=== PATIENT | female | born 1990 | race African-American/Black ===

== ENCOUNTER 2021-06-14 18:19 | Emergency (ER) | payer OTHER, MEDICAID ==
[~2021-06-14] VITALS: Ht 160 cm; Wt 81.7 kg
[2021-06-14] MEDS ORDERED: PNV 29-1 TABLE1 EACH PO (18:59)
[2021-06-14] MEDS ORDERED: TRIUMEQ TABLET1 EACH PO (18:59)
[2021-06-14] MEDS ORDERED: HIV MEDICATION (18:59)
[2021-06-14] MEDS ORDERED: PHENERGAN 25 MG25 M1 PO (19:48)
[2021-06-14 19:58] VITALS: BP 115/73
== END 2021-06-14 19:58 | disposition home or self-care (01) ==
LOC: M.ERS 18:19
DX: U07.1 COVID-19 (principal); Z21 Asymptomatic human immunodeficiency virus [HIV] infection status; Z79.899 Other long term (current) drug therapy

== ENCOUNTER 2021-07-02 21:36 | Emergency (ER) | payer OTHER, MEDICAID ==
[~2021-07-02] VITALS: Ht 160 cm; Wt 81.7 kg
[~2021-07-02 21:36] MED LIST: HIV MEDICATION; PHENERGAN 25 MG25 M1 PO; PNV 29-1 TABLE1 EACH PO; TRIUMEQ TABLET1 EACH PO
[2021-07-02 23:51] VITALS: BP 97/58
== END 2021-07-02 23:51 | disposition home or self-care (01) ==
LOC: M.ERS 21:36
DX: S93.402A Sprain of unspecified ligament of left ankle, initial encounter (principal); Z21 Asymptomatic human immunodeficiency virus [HIV] infection status; Z79.899 Other long term (current) drug therapy; W06.XXXA Fall from bed, initial encounter; Y93.89 Activity, other specified; Y92.89 Other specified places as the place of occurrence of the external cause; Y99.8 Other external cause status

== ENCOUNTER 2021-07-17 13:18 | Emergency (ER) | payer OTHER, MEDICAID ==
[~2021-07-17] VITALS: Ht 160 cm; Wt 81.7 kg
[2021-07-17 15:13] LABS: URINE BILIRUBIN NEGATIVE (Negative); URINE BLOOD NEGATIVE (Negative); URINE CLARITY CLEAR; URINE COLOR YELLOW; URINE GLUCOSE-RANDOM NEGATIVE (Negative); URINE KETONES TRACE (Negative); URINE LEUKOCYTES-REFLEX NEGATIVE (Negative); URINE NITRITE-REFLEX NEGATIVE (Negative); URINE PROTEIN TRACE (Negative); URINE SPECIFIC GRAVITY 1.025 (1.005-1.030)
[2021-07-17 16:37] LABS: ABSOLUTE LYMPHOCYTES 0.9 thou/uL (0.8-5.3); ABSOLUTE MONOCYTES 0.5 thou/uL (0.0-1.2); ABSOLUTE NEUTROPHILS 3.8 thou/uL (1.6-8.1); BASOPHILS 0.6 %; EOSINOPHILS 0.8 %; HEMATOCRIT 25.4 % (37.0-47.0); HEMOGLOBIN 8.7 gm/dL (12.0-15.0); LYMPHOCYTES 17.4 %; MCH 29.2 pg (26.0-34.0); MCHC 34.3 g/dL (28.0-37.0); MCV 85.1 fL (80.0-100.0); MONOCYTES 9.9 %; MPV 7.1 fl. (7.2-11.1); NUCLEATED RBCS 0 /100WBC; PLATELET COUNT* 307 thou/uL (150-400); POLYS 71.3 %; RBC 2.98 mil/uL (4.20-5.00); RDW-CV 14.5 % (10.5-14.5); WBC 5.3 thou/uL (4.0-11.0)
[2021-07-17 16:46] LABS: CALCIUM 8.4 mg/dL (8.5-10.1); CREATININE 0.6 mg/dL (0.6-1.3); POTASSIUM 3.4 mmol/L (3.5-5.1)
[2021-07-17 16:51] LABS: ALBUMIN 2.8 g/dL (3.4-5.0); TOTAL BILIRUBIN 0.3 mg/dL (<0.1-1.0); TOTAL PROTEIN 8.3 g/dL (6.4-8.2)
[2021-07-17 18:28] VITALS: BP 122/71
== END 2021-07-17 18:30 | disposition short-term general hospital (02) ==
LOC: M.ERS 13:18
PROVIDERS: Physician Assistant
DX: O26.892 Other specified pregnancy related conditions, second trimester (principal); R10.31 Right lower quadrant pain; Z21 Asymptomatic human immunodeficiency virus [HIV] infection status; Z3A.20 20 weeks gestation of pregnancy; Z79.899 Other long term (current) drug therapy